=== PATIENT | female | born 1990 | race Caucasian/White ===

== ENCOUNTER 2019-09-21 10:22 | Emergency (ER) | payer MEDICAID ==
[~2019-09-21] VITALS: Ht 154.9 cm; Wt 74.8 kg
[2019-09-21 10:41] VITALS: BP_SYST 112
--- NOTE | 2019-09-21 10:46 | NUR ---
Patient to ER bed 5 to gown for evaluation. Side rails up. Report given to He DOMÍNGUEZ.
--- NOTE | 2019-09-21 10:48 | NUR ---
Patient is awake, alert, and oriented x4. Patient reports using a friend's lip gloss yesterday and exprienced some lip swelling afterward. Patient presents with swollen left upper lip.
--- NOTE | 2019-09-21 10:50 | NUR ---
BETY Anglin at bedside examining patient.
[2019-09-21] MEDS ORDERED: PREDNISONE 20 MG TABLET PO ONE (11:00)
[2019-09-21] MEDS ORDERED: DIPHENHYDRAMINE HCL 25 MG CAPSULE PO ONE (11:00)
--- NOTE | 2019-09-21 11:16 | NUR ---
Patient given written and verbal discharge instructions and verbalizes understanding. ER MD discussed with patient the results and treatment provided. Patient in stable condition. ID arm band removed. Rx of prednisone, benadryl given. Patient educated on pain management and to follow up with PMD. Pain Scale 0/10. Opportunity for questions provided and answered. Medication side effect fact sheet provided.
[2019-09-21 11:17] VITALS: BP_SYST 112
[2019-09-23 18:08] LABS: HSV 2 IgG, TYPE SPECIFIC <0.91
== END 2019-09-21 11:17 | disposition home or self-care (01) ==
LOC: SED 10:22
DX: T78.40XA Allergy, unspecified, initial encounter (principal); X58.XXXA Exposure to other specified factors, initial encounter
CPT/HCPCS: 36415; 86695; 86696; 99283; J7512; Q0163